=== PATIENT | female | born 2000 | race Caucasian/White ===

== ENCOUNTER 2025-02-13 21:20 | Emergency (ER) | payer MEDICAID, SELFPAY ==
--- OUTSIDE RECORDS SUMMARY | 2025-01-11 08:00 | XMS_ITS | Encounter Summary ---
Author Organization [facility] Address [address] [place] [address] Care Team Providers Care Dewer Name Role Phone Ksenia Smith MD Primary Care Provider [phone] Reason for Referral * Imaging (Routine) - Closed Specialty Diagnoses / Procedures Referred By Contac t Referred To Contact Diagnoses 12 weeks gestation of Procedures OB US 14+ Weeks Anatomy Scan Uche Messer MD [address] [place] [address] Phone: tel: fax: Referral ID Status Reason Start Date Expiration Date Visits Re quested Visits Authorized [id number] Closed 11/16/2024 05/18/2026 1 1 Reason for Visit * Imaging (Routine) - Closed Specialty Diagnoses / Procedures Referred By Megan rich Referred To Contact Diagnoses 12 weeks gestation of Procedures OB US 14+ Weeks Anatomy Scan Uche Messer MD [address] [place] [address] Phone: tel: fax: Referral ID Status Reason Start Date Expiration Date Visits Re quested Visits Authorized [id number] Closed 11/16/2024 05/18/2026 1 1 Encounter Details Date Type Department Care Team (Latest Contact Info) Description 01/11/2025 8:00 AM EDT - 01/11/2025 11:59 PM EDT Hospital Encounter [facility] [address] [place] [address] 12 weeks gestation of Discharge Disposition: Home or Self Care Social History Tobacco Use Types Packs/Day Years Used Date Smoking Tobacco: Never Smokeless Tobacco: Never Alcohol Use Standard Drinks/Week Comments Yes 0 (1 standard drink = 0.6 oz pur e alcohol) PHQ-2 Answer Date Recorded Patient Health Questionnaire-2 Score 0 01/11/2025 PHQ-9 Answer Date Recorded Patient Health Questionnaire-9 Score 0 01/11/2025 PHQ-2A Answer Date Recorded Patient Health Questionnaire-2 Score 0 07/18/2022 Estimated Date of Delivery Comme nts Yes 05/27/2025 Based on last me nstrual period of 08/20/2024 (Exact Date) Sex and Gender Information Value Date Recorded Sex Assigned at Not on file Legal Sex Female 6:45 PM EDT Gender Identity Not on file Sexual Orientation Not on file documented as of this encounter Functional Status * Over the past 2 weeks, how often have you been bothered by any of the following problems? Question Answer Date of Assessment Author Little interest or pleasure in doing things Not at all 01/11/2025 8:54 AM Tova Dukes Feeling down, depressed, or hopeless Not at all 01/11/2025 8:54 AM EDT Tova Trejo Patient Health Questionnaire -2 Score 0 01/11/2025 8:54 AM Tova Dukes * Question Answer Date of Assessment Author Trouble falling or staying a sleep, or sleeping too much Not at all 01/11/2025 8:54 AM Tova Dukes Feeling tired or having pinky le energy Not at all 01/11/2025 8:54 AM Tova Dukes Poor appetite or overeating Not at all 01/11/2025 8: 54 AM Tova Dukes Feeling bad about yourself - or that you are a failure or have let yourself or your family down Not at all 01/11/2025 8:54 AM Tova Dukes Trouble concentrating on thi ngs, such as reading the newspaper or watching television Not at all 01/11/2025 8:54 AM EDT Tova Trejo Moving or speaking so slowly that other people could have noticed? Or the opposite - being so fidgety or restless that you have been moving around a lot more than usual. Not at all 01/11/2025 8:54 AM Tova Dukes Thoughts that you would be b veda off or hurting yourself in some way Not at all 01/11/2025 8:54 AM Tova Dukes Patient Health Questionnaire -9 Score 0 01/11/2025 8:54 AM oTva Dukes * How difficult have these problems made it for you to do your work, take care of things at home, or get along with other people? Answer Date of Assessment Author Not difficult at all 01/11/2025 8:54 AM EDT Tova Damon documented as of this encounter Medications at Time of Discharge progesterone (Prometrium) 200 MG capsule Take 1 capsule by mouth nightly. 30 capsule 5 10/19/2024 04/17/2025 MV-Min-Fe Fum-FA-DHA ( 1 PO) Take by mouth. 02/08/2025 documented as of this encounter Plan of Treatment Upcoming Encounters Date Type Department Care Team (Late st Contact Info) Description 03/08/2025 9:30 AM EDT Routine Obstetrics & Gynecology [address] [place] [address] Uche Messer MD [address] [place] [address] documented as of this encounter Goals Goal Patient Goal Type Associated Problems Recent Progress Patient-Stated? Author Delayed Care Plan CPM S24 PP LABOR (OBSTETRICS) No Open Scheduling, Background documented as of this encounter Procedures Procedure Name Priority Date/Time Associated Diagnosis Comments OB US 14+ WEEKS ANATOMY SCAN Routine 01/11/2025 8:55 AM EDT 12 weeks gestation of documented in this encounter Results * OB US 14+ Weeks Anatomy Scan (01/11/2025 8:55 AM EDT) Anatomical Region Laterality Modality Body Ultrasound 01/11/2025 8:14 AM EDT Impressions 01/11/2025 10:06 AM EDT The OB Ultrasound you requested has been resulted. Please navigate to the Imaging tab in [employer] for review. This message has been generated by the interface. Narrative Procedure Note Trixie Johnson MD - 01/11/2025 IMPRESSION: The OB Ultrasound you requested has been resulted. Please navigate to theImaging tab in [employer] for review. This message has been generated by theinterface. us Uche Messer MD IMG OB US PROCEDURES Final Resu lt documented in this encounter Visit Diagnoses Diagnosis 12 weeks gestation of documented in this encounter Additional Health Concerns Active Problems Noted Date Diagnosed Date CPM S24 PP LABOR (OBSTETRICS) 12/17/2024 Assessment Noted Time PHQ-9 Depression Total Score: 0 01/12/20 8:54 AM EDT A fall risk assessment has been complete d for the patient 01/11/2025 8:54 AM EDT A Body Mass Index follow-up plan has been documented for the patient 01/11/2025 9:06 AM EDT documented as of this encounter Care Teams Dewer Relationship Specialty Start Date End Date Ksenia Smith MD [address] [place] [address] PCP - General 09/30/20 documented as of this encounter
--- OUTSIDE RECORDS SUMMARY | 2025-01-11 08:00 | XMS_ITS | Encounter Summary ---
Author Organization [facility] Address [address] [place] [address] Care Team Providers Care Log Operations Coordinator Name Role Phone Ksenia Smith MD Primary Care Provider [phone] Reason for Visit * Reason Comments Ultrasound Encounter Details Date Type Department Care Team (Late st Contact Info) Description 01/11/2025 8:00 AM EDT Routine Obstetrics & Gynecology [address] [place] [address] Uche Messer MD [address] [place] [address] 20 weeks gestation of (Primary Dx) Social History Tobacco Use Types Packs/Day Years [...] on file documented as of this encounter Last Filed Vital Signs Vital Sign Reading Time Taken Comments Blood Pressure 122/79 01/11/2025 8:53 AM EDT Pulse 74 01/11/2025 8:53 AM EDT Temperature 36.8 C (98.2 F) 01/11/2025 8:53 AM EDT Respiratory Rate - - Oxygen Saturation 99% 01/11/2025 8:53 AM EDT Inhaled Oxygen Concentration - - Weight 77 kg (169 lb 12.1 oz) 01/11/2025 8:53 AM EDT Height - - Body Mass Index 27.4 11/16/2024 10:51 AM EDT documented in this encounter Functional Status * Over the past 2 weeks, how often have you been bothered by any of the following problems? Question Answer Date of Assessment Author Little interest or pleasure in doing things Not at all 01/11/2025 8:54 AM Tova Dukes Feeling down, depressed, or hopeless Not at all 01/11/2025 8:54 AM Tova Dukes Patient Health Questionnaire -2 Score 0 01/11/2025 [...] television Not at all 01/11/2025 8:54 AM Tova Dukes Moving or speaking so slowly that other people could have noticed? Or the opposite - being so fidgety or restless that you have been moving around a lot more than usual. Not at all 01/11/2025 8:54 AM Tova Dukes Thoughts that you would be b vead off or hurting yourself in some way Not at all 01/11/2025 8:54 AM Tova Dukes Patient Health Questionnaire -9 Score 0 01/11/2025 8:54 AM Tova Dukes * How difficult have these problems made it for you to do your work, take care of things at home, or get along with other people? Answer Date of Assessment Author Not difficult at all 01/11/2025 8:54 AM Tova Ferraro documented as of this encounter Miscellaneous Notes * Progress Notes - Uche Messer MD - 01/11/2025 8:00 AM EDT Subjective Chief Complaint Patient presents with Ultrasound Yana Smith is a 24 y.o. at 20w4d with a working estimated date of delivery of 05/27/2025,by Last Menstrual Period who presents for a routine visit. She denies vaginal bleeding, leakage of fluid, decreased movements, or contractions. Her is complicated by: NA The following portions of the chart were reviewed this encounter and updated as appropriate: Meds Objective Physical Exam Weight: 77 kg (169 lb 12.1 oz) Expected Total Weight Gain: Could not be calculated Pregravid BMI: Could not be calculated BP: 122/79 Heart Rate: +us Labs Urine dip: NA HGB (g/dL) Date/Time Value 10/19/2024 1504 14.0 HCT (%) Date/Time Value 10/19/2024 1504 42.9 ABO/Rh (no units) Date/Time Value 10/19/2024 1504 A Positive Hepatitis B Surf Antigen (no units) Date/Time Value 10/19/2024 1504 Negative No results found for: PAPPA , AFP , HCG , ESTRIOL , INHBA No results found for: GLUF , GLUT1 , [id number] , [id number] Imaging Anatomy US OK - Breech Assessment/Plan Assessment & Plan 20 weeks gestation of Orders: OB US 14+ Weeks Anatomy Scan; Future Continue vitamin. Labs reviewed. GTT + others at 28+ weeks. Tdap at 28+ weeks. Re-Anatomy US 4 weeks. Follow up in 4 weeks for a routine visit. documented in this encounter Plan of Treatment Upcoming Encounters Date Type Department Care Team (Late st Contact Info) Description 03/08/2025 9:30 AM EDT Routine [facility] [address] [place] [address] Uche Messer MD [address] [place] [address] documented as of this encounter Goals Goal Patient Goal Type Associated Problems Recent Progress Patient-Stated? Author Delayed Care Plan CPM S24 PP LABOR (OBSTETRICS) No Open Scheduling, Background documented as of this encounter Visit Diagnoses Diagnosis 20 weeks gestation of - Primary documented in this encounter Additional Health Concerns [...] documented as of this encounter Care Teams Log Operations Coordinator Relationship Specialty Start Date End Date Ksenia Smith MD [address] [place] [address] PCP - General 09/30/20 documented as of this encounter
--- OUTSIDE RECORDS SUMMARY | 2025-02-08 08:30 | XMS_ITS | Encounter Summary ---
Author Organization [facility] Address [address] [place] [address] Care Team Providers Care Cat Cracker Operator Name Role Phone Ksenia Smith MD Primary Care Provider [phone] Reason for Visit * Reason Comments Routine Visit Pt doing good, de clined flu vaccine Encounter Details Date Type Department Care Team (Late st Contact Info) Description 02/08/2025 8:30 AM EDT Routine Obstetrics & Gynecology [address] [place] [address] Uche Messer MD [address] [place] [address] 24 weeks gestation of (Primary Dx) Social History Tobacco Use Types Packs/Day Years Used Date Smoking Tobacco: Never Smokeless Tobacco: Never Tobacco Cessation:Counseling Given: Not Answered Alcohol Use Standard Drinks/Week Comments Yes 0 (1 standard drink = 0.6 oz pur e alcohol) PHQ-2 Answer Date Recorded Patient Health Questionnaire-2 Score 0 02/08/2025 PHQ-9 Answer Date Recorded Patient Health Questionnaire-9 [...] Sign Reading Time Taken Comments Blood Pressure 116/80 02/08/2025 9:07 AM EDT Pulse 88 02/08/2025 9:07 AM EDT Temperature - - Respiratory Rate 20 02/08/2025 9:07 AM EDT Oxygen Saturation 100% 02/08/2025 9:07 AM EDT Inhaled Oxygen Concentration - - Weight 79.8 kg (175 lb 14.8 oz) 02/08/2025 9:07 AM EDT Height 167.6 cm (5' 6 ) 02/08/2025 9:07 AM EDT Body Mass Index 28.4 02/08/2025 9:07 AM EDT documented in this encounter Functional Status * Over the past 2 weeks, how often have you been bothered by any of the following problems? Question Answer Date of Assessment Author Little interest or pleasure in doing things Not at all 02/08/2025 9:08 AM EDT Maryjo Stein Feeling down, depressed, or hopeless Not at all 02/08/2025 9:08 AM EDT Maryjo Stein Patient Health Questionnaire -2 Score 0 02/08/2025 9:08 AM EDT Maryjo Stein documented as of this encounter Miscellaneous Notes * Progress Notes - Uche Messer MD - 02/08/2025 8:30 AM EDT Subjective Chief Complaint Patient presents with Routine Visit Pt doing good, declined flu vaccine Yana Smith is a 24 y.o. at 24w4d with a working estimated date of delivery of 05/27/2025,by Last Menstrual Period who presents for a routine visit. She denies vaginal bleeding, leakage of fluid, decreased movements, or contractions. Her is complicated by: NA The following portions of the chart were reviewed this encounter and updated as appropriate: Meds Objective Physical Exam Weight: 79.8 kg (175 lb 14.8 oz) Expected Total Weight Gain: Could not be calculated Pregravid BMI: Could not be calculated BP: 116/80 Heart Rate: +us Labs Urine dip: NA HGB (g/dL) Date/Time Value 10/19/2024 1504 14.0 HCT (%) Date/Time Value 10/19/2024 1504 42.9 ABO/Rh (no units) Date/Time Value 10/19/2024 1504 A Positive Hepatitis B Surf Antigen (no units) Date/Time Value 10/19/2024 1504 Negative No results found for: PAPPA , AFP , HCG , ESTRIOL , INHBA No results found for: GLUF , GLUT1 , [id number] , [id number] Imaging Re-Anatomy US OK - Breech Assessment/Plan Assessment & Plan 24 weeks gestation of Continue vitamin. Labs reviewed. GTT + others at 28+ weeks. Tdap at 28+ weeks. Declines FLU Follow up in 4 weeks for a routine visit. documented in this encounter Plan of Treatment Upcoming Encounters Date Type Department Care Team (Late st Contact Info) Description 03/08/2025 9:30 AM EDT Routine [facility] [address] [place] [address] Uche Messer MD [address] [place] [address] documented as of this encounter Goals Goal Patient Goal Type Associated Problems Recent Progress Patient-Stated? Author Delayed Care Plan CPM S24 PP LABOR (OBSTETRICS) No Open Scheduling, Background documented as of this encounter Visit Diagnoses Diagnosis 24 weeks gestation of - Primary documented in this encounter Additional Health Concerns Active Problems Noted Date Diagnosed Date CPM S24 PP LABOR (OBSTETRICS) 12/17/2024 Assessment Noted Time PHQ-9 Depression Total Score: 0 01/12/20 25 8:54 AM EDT A fall risk assessment has been complete d for the patient 02/08/2025 9:08 AM EDT A Body Mass Index follow-up plan has been documented for the patient 02/08/2025 9:27 AM EDT documented as of this encounter Care Teams Cat Cracker Operator Relationship Specialty Start Date End Date Ksenia Smith MD [facility] [place] [id number] PCP - General 09/30/20 documented as of this encounter
--- OUTSIDE RECORDS SUMMARY | 2025-02-08 08:35 | XMS_ITS | Encounter Summary ---
Author Organization [facility] Address [address] [place] [address] Care Team Providers Care Railroad Car Repair Supervisor Name Role Phone Ksenia Smith MD Primary Care Provider [phone] Reason for Visit * Imaging (Routine) - Closed Specialty Diagnoses / Procedures Referred By Megan rich Referred To Contact Diagnoses 20 weeks gestation of Procedures OB US Follow Up Transabdominal Approach OB US 14+ Weeks Anatomy Scan Uche Messer MD [address] [place] [address] Phone: tel: fax: Referral ID Status Reason Start Date Expiration Date Visits Re quested Visits Authorized [id number] Closed 01/11/2025 07/13/2026 1 1 Encounter Details Date Type Department Care Team (Latest Contact Info) Description 02/08/2025 8:35 AM EDT - 02/08/2025 11:59 PM EDT Hospital Encounter [facility] [address] [place] [address] 20 weeks gestation of Discharge Disposition: Home or [...] Maryjo Stein documented as of this encounter Medications at Time of Discharge progesterone (Prometrium) 200 MG capsule Take 1 capsule by mouth nightly. 30 capsule 5 10/19/2024 04/17/2025 documented as of this encounter Plan of Treatment Upcoming Encounters Date Type Department Care Team (Late st Contact Info) Description 03/08/2025 9:30 AM EDT Routine [facility] [address] [place] [address] Uche Messer MD [address] [place] [address] documented as of this encounter Goals Goal Patient Goal Type Associated Problems Recent Progress Patient-Stated? Author Delayed Care Plan CPM S24 PP LABOR (OBSTETRICS) No Open Scheduling, Background documented as of this encounter Procedures Procedure Name Priority Date/Time Associated Diagnosis Comments OB US FOLLOW UP TRANSABDOMINAL APPROACH Routine 02/08/2025 9:05 AM EDT 20 weeks gestation of documented in this encounter Results * OB US Follow Up Transabdominal Approach (02/08/2025 9:05 AM EDT) Anatomical Region Laterality Modality Body Ultrasound 02/08/2025 8:36 AM EDT Impressions 02/08/2025 9:41 AM EDT The OB Ultrasound you requested has been resulted. Please navigate to the Imaging tab in [employer] for review. This message has been generated by the interface. Narrative Procedure Note Gracy Rodriguez MD - 02/08/2025 IMPRESSION: The OB Ultrasound you requested has been resulted. Please navigate to theImaging tab in [employer] for review. This message has been generated by [employer]. us Uche Messer MD IMG OB US PROCEDURES Final Resu lt documented in this encounter Visit Diagnoses Diagnosis 20 weeks gestation of documented in this encounter [...] documented as of this encounter Care Teams Railroad Car Repair Supervisor Relationship Specialty Start Date End Date Ksenia Smith MD [address] [place] [address] PCP - General 09/30/20 documented as of this encounter
--- NOTE | 2025-02-13 21:25 | HMH.EDGENADL ---
Discharge Plan Disposition Patient Disposition: Left Against Medical Advice Condition: Good Referrals Follow up/Referrals: Provider,Referral, [Primary Care Provider, Medical] - See instructions Activity Restrictions/Add. Instructions Additional Instructions/Restrictions: Return to the emergency department for any acute or worsening symptoms. Clinical Impressions Clinical Impression: Chest pain Print Language Print Language: [place] Islander Discharge ED Provider: Lindsay Kahn General Adult HPI General Chief complaint: Chest Pain Stated complaint: chest pain; 25 wks AP Time Seen by Provider: 02/13/25 21:25 History of Present Illness HPI narrative: Patient is an otherwise healthy 24-year-old female who is currently 25 weeks who presented to the emergency department with chest pain. Patient called OB and they recommended that she be evaluated in the emergency department. 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 Patient states she has had an uncomplicated at this time. Patient has no abdominal pain abdominal cramping or vaginal bleeding. States a couple hours prior to arrival around 8 PM she started to have chest pain that radiated to her left shoulder. Patient states that it lasted for about an hour and then completely resolved. Patient did not take any medications at home for this. Patient denied any other shortness of breath or associated symptoms. Patient states that when she had the pain it was sharp in nature. Patient states that she has had some GERD during her . Patient denies any neurologic symptoms including headache, vision changes or other neurologic symptoms. Patient does not take any other daily medications. Related Data Allergies Allergy/AdvReac Type Severity Reaction Status Date / Time amoxicillin (From Augmentin) AdvReac Other Verified 02/13/25 21:46 clavulanic acid (From AdvReac Other Verified 02/13/25 21:46 Augmentin) [facility] Disclaimer: The information contained in this section may have been updated after the patient was seen, as this information can be updated by other users. Social History Smoking Status: Current every day smoker alcohol intake: never current occupational status: other Travel in the last 8 weeks?: None ROS Obtained: Yes All systems reviewed & no additional complaints except as documented and Yes Systems reviewed as appropriate & no additional complaints except as documented Physical Exam General General appearance: alert and in no apparent distress Head Head exam: atraumatic, normocephalic and normal inspection Eye Eye exam: Present normal appearance, PERRL and EOMI; Absent scleral icterus ENT ENT exam: Present normal exam and normal external ear exam Neck Neck exam: Present normal inspection and full ROM Chest Chest inspection: Present normal inspection and symmetric chest wall rise Respiratory Respiratory exam: Present normal lung sounds bilaterally; Absent respiratory distress or wheezes Cardiovascular Cardiovascular exam: Present regular rate, normal rhythm and normal heart sounds Abdominal Exam Abdominal exam: Present soft and distention; Absent tenderness, guarding or rebound Extremities Exam Extremities exam: Present normal inspection and full ROM Back Exam Back exam: Present normal inspection and full ROM Neurological Exam Neurological exam: Present alert and oriented X3 Psychiatric Psychiatric exam: Present normal affect and normal mood Skin Skin exam: Present warm and dry Medical Decision Making Medical Records Medical records reviewed: Yes I reviewed the patient's medical records. Screening: Per USPSTF and CDC recommendations, given the prevalence of disease in our region, it is our hospital?s policy to screen for HIV and viral Hepatitis for all patients aged 18 and over and those with ongoing risk factors. Willy Inquiry Pt receiving controlled substance: No Vital Signs: 02/13/25 21:41 02/13/25 21:48 02/13/25 22:31 Temperature 98.2 F Temperature Source Oral Pulse Rate 105 H 90 Pulse Rate [Right] 105 H Respiratory Rate 16 16 Blood Pressure 102/78 L Blood Pressure [Right Arm] 136/83 Blood Pressure Mean [Right Arm] 100 Blood Pressure Source [Right Arm] Automatic Cuff Blood Pressure Position [Right Arm] Sitting 02 Sat by Pulse Oximetry 100 99 Oxygen Delivery Method Room Air 02/13/25 23:00 02/13/25 23:30 Temperature 98.6 F Temperature Source Pulse Rate 93 H 53 L Pulse Rate [Right] Respiratory Rate 24 16 Blood Pressure 117/76 114/73 Blood Pressure [Right Arm] Blood Pressure Mean [Right Arm] Blood Pressure Source [Right Arm] Blood Pressure Position [Right Arm] 02 Sat by Pulse Oximetry 99 Oxygen Delivery Method Room Air Lab Data Lab results reviewed: Yes I reviewed the patient's lab results. Lab Results 02/13/25 21:25: Sodium 136, Potassium 3.1 L, Chloride 103, Carbon Dioxide 26, Anion Gap 10.1, BUN 4 L, Creatinine 0.60, Estimated Creat Clear 179, Estimated GFR 125, Est GFR ( Amer) 151, Glucose 89, Calcium 8.9, Total Bilirubin 0.4, AST 19, ALT 19, Alkaline Phosphatase 69, Troponin I < 0.01, Total Protein 6.2 L, Albumin 3.6, Globulin 2.6, Albumin/Globulin Ratio 1.4, Lipase 46, HCV Ab ETHAN w/Rflx PCR Qn Negative, HIV Ag/Ab Combo Qual Negative 02/13/25 21:25 Orders (Tests/Meds): ED MEDICATIONS Discontinued Medications Generic Name Dose Route Start Last Admin Trade Name Freq PRN Reason Stop Dose Admin Sodium Chloride 1,000 mls @ 999 mls/hr 02/13/25 21:59 02/13/25 22:35 Sod Chlor 0.9% 1000ml Bag IV 02/13/25 22:59 Not Given .Q1H1M ONE ORDERS Category Date Time Status CMP [Comprehensive Metabolic Panel] Stat Lab 02/13/25 21:25 Completed HIV Combo Stat Lab 02/13/25 21: Completed Hepatitis C Ab Qual. W/ RFX Stat Lab 02/13/25 21:25 Completed Lipase Stat Lab 02/13/25 21:25 Completed Trop I [Troponin I] Stat Lab 02/13/25 21:25 Completed Medical Decision Narrative: Patient is an otherwise healthy 24-year-old female who is currently G4, P0 25 weeks who presented to the emergency department with chest pain. On arrival, patient was hemodynamically stable with unremarkable vital signs. Differential included but not limited to:GERD, ACS/UT, arrhythmia, costochondritis, gallbladder disease, amongst others. heart rate was obtained on arrival which was normal at 142 bpm. Patient's labs were reviewed and interpreted by myself: CMP was unremarkable except for mildly low potassium at 3.1. Initial troponin less than 0.01. Lipase normal. Patient refused x-ray after I initially ordered it. After further discussion with the patient, she did not wish to wait for second troponin. I discussed that given her chest pain had only started a couple hours prior to arrival I would recommend a second troponin patient declined at this time given that her symptoms had resolved. Patient ultimately signed out AMA patient was otherwise discharged home. Return precautions were discussed. Critical Care Critical Care Time Critical Care Time: No
--- NOTE | 2025-02-13 21:27 | ECG_ITS ---
APPROVED REPORT Exam: Resting ECG HR:104 bpm ECG Measurements Heart Rate 104 AXES WY 137 P 49 QRSd 100 QRS 62 QT 328 T 15 QTc 389 Conclusion SINUS TACHYCARDIA NONSPECIFIC T-WAVE ABNORMALITY ABNORMAL RHYTHM ECG UNCONFIRMED REPORT Electronically signed by : CAITLIN DUDLEY, 02/15/2025 23:05:17
--- OUTSIDE RECORDS SUMMARY | 2025-02-13 21:35 | XMS_ITS | Encounter Summary ---
Author Organization Healthcare Address [address] [place] [address] Care Team Providers Care Supervisor Paper Testing Name Role Phone Ksenia Smith MD Primary Care Provider [phone] Encounter Details Date Type Department Care Team (Late st Contact Info) Description 11/16/2024 Telephone Obstetrics & Gynecology [address] [place] [address] Uche Messer MD [address] [place] [address] Social History Tobacco Use Types Packs/Day Years Used Date Smoking Tobacco: Never Smokeless Tobacco: Never Alcohol Use Standard Drinks/Week Comments Yes 0 (1 standard drink = 0.6 oz pur e alcohol) PHQ-2 Answer Date Recorded Patient Health Questionnaire-2 Score 0 12/14/2024 PHQ-9 Answer Date Recorded Patient Health Questionnaire-9 Score 0 12/14/2024 PHQ-2A Answer Date Recorded Patient Health Questionnaire-2 [...] pleasure in doing things Not at all 12/14/2024 9:32 AM Tova Dukes Feeling down, depressed, or hopeless Not at all 12/14/2024 9:32 AM Tova Dukes Patient Health Questionnaire -2 Score 0 12/14/2024 9:32 AM Tova Dukes * Question Answer Date of Assessment Author Trouble falling or staying a sleep, or sleeping too much Not at all 12/14/2024 9:32 AM Tova Dukes Feeling tired or having pinky le energy Not at all 12/14/2024 9:32 AM Tova Dukes Poor appetite or overeating Not at all 12/14/2024 9: 32 AM Tova Dukes Feeling bad about yourself - or that you are a failure or have let yourself or your family down Not at all 12/14/2024 9:32 AM Tova Dukes Trouble concentrating on thi ngs, such as reading the newspaper or watching television Not at all 12/14/2024 9:32 AM Tova Dukes Moving or speaking so slowly that other people could have noticed? Or the opposite - being so fidgety or restless that you have been moving around a lot more than usual. Not at all 12/14/2024 9:32 AM Tova Dukes Thoughts that you would be b veda off or hurting yourself in some way Not at all 12/14/2024 9:32 AM Tova Dukes Patient Health Questionnaire -9 Score 0 12/14/2024 9:32 AM Tova Dukes * How difficult have these problems made it for you to do your work, take care of things at home, or get along with other people? Answer Date of Assessment Author Not difficult at all 12/14/2024 9:32 AM Tova Ferraro documented as of this encounter Miscellaneous Notes * Telephone Encounter - Maryjo Stein - 11/16/2024 4:52 PM EDT Will discuss at NT ultrasound appt pt vu * Telephone Encounter - Xiomara Alonso - 11/16/2024 2:05 PM EDT Clinical Concern/Question Reason for Call: Pt has a question about her medication Best contact number: [phone] (mobile) Optimal time of day to reach caller: ANYTIME Additional comments/information from caller: None Note: Please do not reply to this message. Follow-up communication and further actions as a result of this message need to be communicated with the patient directly, if the patient is not active onMyChart. If the patient is active on MyChart, they will receive notification of the communication/outcome via [employer]. documented in this encounter Plan of Treatment Upcoming Encounters Date Type Department Care Team (Late st Contact Info) Description 03/08/2025 9:30 AM EDT Routine [facility] [address] [place] [address] Uche Messer MD [address] [place] [address] documented as of this encounter Visit Diagnoses Not on filedocumented in this encounter Additional Health Concerns Assessment Noted Time PHQ-9 Depression Total Score: 0 08/06/19 25 10:40 AM EDT A fall risk assessment has been complete d for the patient 11/16/2024 10:52 AM EDT A Body Mass Index follow-up plan has been documented for the patient 11/16/2024 11:43 AM EDT documented as of this encounter Care Teams Supervisor Paper Testing Relationship Specialty Start Date End Date Ksenia Smith MD [address] [id number] PCP - General 09/30/20 documented as of this encounter
--- OUTSIDE RECORDS SUMMARY | 2025-02-13 21:35 | XMS_ITS | Encounter Summary ---
Author Organization Healthcare Address [address] [place] [address] Care Team Providers Care Adding Machine Mechanic Name Role Phone Ksenia Smith MD Primary Care Provider [phone] Encounter Details Date Type Department Care Team (Late st Contact Info) Description 02/05/2025 Telephone Obstetrics & Gynecology [address] [place] [address] Uche Messer MD [address] [place] [address] Social History Tobacco Use Types [...] on file documented as of this encounter Miscellaneous Notes * Telephone Encounter - Gladys Perez - 02/05/2025 10:02 AM EDT Lm on to confirm appt for 02/08 documented in this encounter Plan of Treatment Upcoming Encounters Date Type Department Care Team (Late st Contact Info) Description 03/08/2025 9:30 AM EDT Routine [facility] [address] [place] [address] Uche Messer MD [address] [place] [address] documented as of this encounter Goals Goal Patient Goal Type Associated Problems Recent Progress Patient-Stated? Author Delayed Care Plan CPM S[facility] (OBSTETRICS) No Open Scheduling, Background documented as of this encounter Visit Diagnoses Not on filedocumented in this encounter Additional Health Concerns Active [...] documented as of this encounter Care Teams Adding Machine Mechanic Relationship Specialty Start Date End Date Ksenia Smith MD [facility] [place] [address] PCP - General 09/30/20 documented as of this encounter
--- OUTSIDE RECORDS SUMMARY | 2025-02-13 21:35 | XMS_ITS | Data Portability ---
Author Organization [facility] [place] [facility] Address [address] [place] [address] Assessment No assessment recorded. Plan of Treatment Reminders Order Date Submit Date Provider Last Modified By Organization Details Last Modified Time Details Appointments None recorded. Lab urinalysis , dipstick 2022 023 [email or web address] [facility], [address] [facility], [address], [place], [address], 3 14:38:29 influenza virus A + B + SARS-CoV-2 (COVID19) Ag panel, rapid IA, upper respirator y specimen 2022 023 Not available 15:19:22 rapid strep group A, throat 2022 023 [email or web address] Not available 15:19:22 Referral None recorded. Procedures None recorded. Surgeries None recorded. Imaging US, renal 2022 023 [facility] (Centralized Scheduling), [address] [facility], [place], [address], 3 14:55:28 XR, kidney + ureter + bladder 2022 023 [facility] (Centralized Scheduling), [address] [facility], [place], [address], 3 14:55:28 Medication Orders Macrodanti n 50 mg capsule 2022 023 ALYSSA [facility] [id number], [address] [place], [address], 14:37:35 prednisone 10 mg tablets in a dose pack 2022 023 [email or web address] [facility] [id number], [address] [place], [address], 14:10:12 Patient TargetsNo targets recorded. Patient InstructionsNo instructions recorded. Reason for Referral None Reported. Results Created Date Observation Date Name Description Value Unit Range Abnormal Flag Note LastModifiedBy Organization Detail LastModifiedTime 03/04/2003/04/2023 influ sarah virus A + B + SARS- CoV-2 (COVI D19) Ag panel , rapid IA, upper respi rator y speci men FLU A negati ve Not Available [facility] [address] [facility] [address] [facility], [place], [address], 03/04/2023 14:56:10 03/04/20 23 03/04/2023 influ sarah virus A + B + SARS- CoV-2 (COVI D19) Ag panel , rapid IA, upper respi rator y speci men FLU B negati ve Not Available [facility] [address] [facility] [address] [facility], [place], [address], 03/04/2023 14:56:10 03/04/20 23 03/04/2023 influ sarah virus A + B + SARS- CoV-2 (COVI D19) Ag panel , rapid IA, upper respi rator y speci men SARS COV + SARS OV 2 negati ve Not Available [facility] [address] [facility] [address] [facility], [place], [address], 03/04/2023 14:56:10 03/04/20 23 03/04/2023 rapid strep group A, throa t Strep negati ve Not Available [facility] [address] [facility] [address] [facility], [place], [address], 03/04/2023 14:52:46 04/01/2004/01/2023 urina lysis , dipst ick Leukocytes (reference range) negati ve Not Available [facility] [address] [place] [address] [address], [place], [address], 04/01/2023 14:21:12 04/01/2004/01/2023 urina lysis , dipst ick Nitrite (reference range:) negati ve Not Available [facility] [address] [place] [address] [address], [place], [address], 04/01/2023 14:21:12 04/01/2004/01/2023 urina lysis , dipst ick Urobilinogen (reference range) 0.2 Not Available [address] [address] [address], [place], [address], 04/01/2023 14:21:12 04/01/2004/01/2023 urina lysis , dipst ick Protein (reference range) negati ve Not Available [address] [address], [place], [address], 04/01/2023 14:21:12 04/01/2004/01/2023 urina lysis , dipst ick pH (reference range 5-8.5) 7.0 Not Available [facility], [place], [address], 04/01/2023 14:21:12 04/01/2004/01/2023 urina lysis , dipst ick Blood (reference range:) negati ve Not Available [address], [place], [address], 04/01/2023 14:21:12 04/01/20 23 04/01/2023 urina lysis , dipst ick Specific [place] (reference range) 1.015 Not Available [facility] [address] [place] [address] [address], [place], [address], 04/01/2023 14:21:12 04/01/20 23 04/01/2023 urina lysis , dipst ick Ketone (reference range) negati ve Not Available [facility] [address] [place] [address] [address], [place], [address], 04/01/2023 14:21:12 04/01/2004/01/2023 urina lysis , dipst ick Bilirubin (reference range) negati ve Not Available [facility] [address] [place] [address] [address], [place], [address], 04/01/2023 14:21:12 04/01/20 23 04/01/2023 urina lysis , dipst ick Glucose (reference range) negati ve Not Available [facility], [place], [address], 04/01/2023 14:21:12 04/01/2004/01/2023 urina lysis , dipst ick Color (reference range: yellow-brown ) Yellow Not Available [facility] [address] [place] [address] [address], [place], [address], 04/01/2023 14:21:12 04/08/20 23 04/08/2023 URINE PREGN MAICOL TEST urine test NEGATI VE negati ve Not Available [facility] ([facility]) [address] [facility], [place], [address], 04/08/2023 09:18:48 04/08/20 23 04/08/2023 URINE PREGN MAICOL TEST HCG urine lot # [id number] Not Available [facility] ([facility]) [address] [facility], [place], [address], 04/08/2023 09:18:48 04/08/20 23 04/08/2023 URINE PREGN MAICOL TEST HCG urine exp date 2023 Not Available [facility] ([facility]) [address], [place], [address], 04/08/2023 09:18:48 04/08/20 23 04/08/2023 URINE PREGN MAICOL TEST HCG urine int control pos OK positi ve Not Available [facility] ([facility]) [address], [place], [address], 04/08/2023 09:18:48 04/08/20 23 04/08/2023 XR, abdom en, 1 view [facility] [address] [place] [address] Phone: Fax: Name: HUI SMITH Exam Date: 2022 : [birth year] Age 22 Gender : F Access ion: [id number] Physic rolf: ALVARO BERGER Facili ty: [facility] Facili ty HSV: Outpat ient Exam: ABD KUB 1V KUB. HISTOR Y: Chroni c urinar y tract infect ions. FINDIN GS: A single view of the abdome n with a coned- down of the pelvis demons trates a nonspe cific bowel gas patter n. Mild to modera te stool in the colon limits assess ment of the renal shadow s. No defini te renal ureter al stone is identi fied. No acute osseou s abnorm ality is identi fied. IMPRES TANISHA: No defini te renal or ureter al stone identi fied. Images review ed, interp reted and dictat ed by Dr. Orozco. Transc ribed by Jeanmarie Heard PA-C Dictat ed By: BILLY OROZCO Transc ribed By: Billy Orozco Transc ribed On: 2022 11:29 AM Electr onical ly signed by: BILLY OROZCO 2022 Thank you for referr HUI [facility] to [facility]. Legall y authen ticate d by POPE BILLY Moreno 2022-05 11:29: 12 CC'ed Logic: Orderi ng Provid er: CELINE Carpenter Attend ing Provid er: CELINE Carpenter Admitt ing Provid er: CELINE Carpenter [email or web address] [facility] [address] [facility], [place], [address], 04/08/2023 12:45:11 04/08/20 23 04/08/2023 renal ,bila teral US [facility] [address] [place] [address] Phone: Fax: Name: HUI SMITH Exam Date: 2022 : [birth year] Age 22 Gender : F Access ion: [id number] Physic rolf: ALVARO BERGER Facili ty: [facility] Facili ty HSV: Outpat ient Exam: RENAL, BILATE RAL US RENAL ULTRAS OUND HISTOR Y: Recurr ent urinar y tract infect ions. PROCED URE: Ultras ound images of the kidney s were obtain ed. FINDIN GS: Limite d images of the liver parenc hyma demons trate normal echoge nicity . The right kidney measur es 11 cm in length . It is normal echoge nicity . There is no hydron ephros is. The left kidney measur es 11 cm in length . It is normal echoge nicity . There is no hydron ephros is. IMPRES TANISHA: Normal renal ultras ound. Images review ed, interp reted and dictat ed by Dr. Orozco. Transc ribed by Jeanmarie Heard PA-C Dictat ed By: BILLY OROZCO Transc ribed By: Billy Orozco Transc ribed On: 2022 11:29 AM Electr onical ly signed by: BILLY OROZCO 2022 Thank you for referr HUI [place] to [facility] it Hospit al. Legall y authen ticate d by POPE BILLY Moreno 2022-05 11:29: 49 CC'ed Logic: Orderi ng Provid er: CELINE Carpenter Attend ing Provid er: CELINE Carpenter Admitt ing Provid er: CELINE ALVARO Carpenter [email or web address] [facility] [address] [facility], [place], [address], 04/08/2023 12:45:11 Result Notes Documentation Provider Name and Address Organization Details Recorded Time Xr, Abdomen, 1 View : [facility] [address] [place] [address] Name: YANA SMITH Exam Date: 04/08/2023 : 2000 Age 22 Gender: F Physician: ALY BERGER Facility: [facility] Facility HSV: Outpatient Exam: ABD KUB 1V KUB. HISTORY: Chronic urinary tract infections. FINDINGS: A single view of the abdomen with a coned-down of the pelvis demonstrates a nonspecific bowel gas pattern. Mild to moderate stool in the colon limits assessment of the renal shadows. No definite renal ureteral stone is identified. No acute osseous abnormality is identified. IMPRESSION: No definite renal or ureteral stone identified. Images reviewed, interpreted and dictated by Dr. Orozco. Transcribed by Jeanmarie eHard PA-C Dictated By: BILLY OROZCO Transcribed By: Billy Orozco Transcribed On: 04/08/2023 11:29 AM Electronically signed by: BILLY OROZCO 04/08/2023 Thank you for referring YANA SMITH to [facility]. Legally authenticated by POPE BILLY Moreno 2023-04-08 11:29:12 CC'ed Logic: Ordering Provider: CELINE LU Attending Provider: CELINE LU Admitting Provider: CELINE Berger, MAINFRAME SYSTEMS ENGINEER, S [address] [facility], [place], [address], [facility] & [place] 04/08/2023 12:45:11 Medical Equipment None Reported. Allergies Allergen ID Allergen Name Allergen Category Reaction Reaction Severity Criticality Documentation Date Start Date Code Code System Note Provider Name and Address Organization Details Recorded Time 39837 Augmentin medicatio n hives Not available Not available 03/04/2023 43441 2 RxNorm Shannon Luevano null, [facility] [place] 3 14:39:13 Medications Name Sig Start Date Stop Date Status Note LastModified by Organization Details LastModified Time terconazole 0.4 % vaginal cream INSERT 1 APPLICATO R INTO THE VAGINA EVERY NIGHT FOR 7 DAYS. 03/04 completed Not Available Not Available Not Available nitrofurant oin macrocrysta l 50 mg capsule Take 1 capsule every day by oral route for 30 days. active Not Available Not Available No t Available clindamycin HCl 300 mg capsule 04/01 completed Not Available Not Available Not Available fluconazole 150 mg tablet TAKE 1 TABLET BY MOUTH 1 TIME FOR 1 DOSE. 04/01 completed Not Available Not Available Not Available metronidazo le 500 mg tablet TAKE 1 TABLET BY MOUTH TWICE A DAY FOR 7 DAYS 03/04 completed Not Available Not Available Not Available prednisone 10 mg tablets in a dose pack As directed 04/01 completed Not Available Not Available Not Available estradiol 0.01% (0.1 mg/gram) vaginal cream active Not Available Not Available Not Available oxybutynin chloride 5 mg tablet 03/04 completed Not Available Not Available Not Available ondansetron 4 mg disintegrat ing tablet 03/04 completed Not Available Not Available Not Available nitrofurant oin monohydrate /macrocryst als 100 mg capsule 03/04 completed Not Available Not Available Not Available Blisovi Fe 06/08 (28) 1 mg-20 mcg (21)/75 mg (7) tablet active Not Available Not Available N ot Available Vitals Date Recorded Body height Body mass index (BMI) [Percentile] Per age and sex Body mass index (BMI) Body weight Body temperature Heart rate Oxygen saturation Oxygen saturation in Arterial blood by Pulse oximetry Systolic And Diastolic Provider Name and Address Organization Details Last Updated DateTime 3 167.64 cm 44 % 21.3 kg/m2 38618.8 9 g 99.7 [degF] 98 /min 97 % 97 % 121/77 mm[Hg] Shannon Bassem LANGLEY [facility] [place] 3 14:37:48 Date Recorded Body height Body mass index (BMI) Body mass index (BMI) [Percentile] Per age and sex Body weight Body temperature Systolic And Diastolic Provider Name and Address Organization Details Last Updated DateTime 3 167.64 cm 21 kg/m2 41 % 01331.0 1 g 98 [degF] 112/72 mm[Hg] Tova Lopes [place] [facility] [place] 3 14:20:28 Social History None recorded. Functional Status Question Answer Note LastModified by Organizat ion Details LastModified Time Do you use any illicit or recreational drugs? No Information not available 04/01/2023 What is your level of alcohol consumption? Occasional Information not available 04/01/2023 Mental Status None recorded. Family History Relationship Description Onset Age of this Age Resolved Age Notes LastModified by Organization Details LastModified Time Father No current problems or disability [email or web address] Not available 04/01 14:11:52 Mother No current problems or disability [email or web address] Not available 04/01 14:11:52 Notes:Mother living no issue s Father living no issues Medical History No medical history recorded. Gynecological History Statement/Question Response Menses Monthly N Current Control Method IUD Obstetrics History GPAL:G 0 P 0 0 0 0 Past Encounters Encounter ID Performer Location Encounter Start Date Encounter Closed Date Diagnosis/Indication Diagnosis SNOMED-CT Code Diagnosis ICD10 Code Diagnosis IMO Codes Diagnosis Note [id number] Luke Castillo MD [facility] [address] [facility] [address] [place] [address] 03/04/2023 14:19:48 03/04/2023 15:18:21 Sore throat 584786935 J02.9 Nasal congestion 7577501 0 R09.81 Acute uppe r respiratory infection 85011407 J06.9 Presumed viral illness. Rest, plenty of fluids, OTC symptomati c treatment. Return for failure several days or sooner if worsening. Steroids for symptoms. [id number] Aly Berger NP, [facility] [address] [facility] [place] [address] 04/01/2023 13:36:44 04/01/2023 15:04:09 Recurrent urinary tract infection 895388277 N39.0 UA clearDiscu ssed active bowel habits, probiotics , cranberry supplement s/vitamin C Qday-tid, hygeine, voiding prior to and post sex (wash), and wipe front to back.Sched ule Renal US and KUBStart Macrodanti n 50mg dailyRTC in 8 weeks for f/u Nocturia 862510321 R35.1 Constipation 76341841 K5 9.00 Health Concerns Section Related Observation LastModified by Organization Detai ls LastModified Time None Recorded Concern Status LastModified by Organization Details LastModified Time None Recorded Advance Directives Directive None Recorded Payers Insurance Date Sequence Insurance Name Policy Number Policy Thomas Covered Member ID Thomas Member ID Guarantor Name 05/24/2023 1 [facility] (MEDICAID HMO) Yana Smith [id number] Sonia Garcia 03/04/2023 1 [place] [id number] Mahendra Smith [id number] Sonia Garcia 03/04/2023 1 [employer]) [id number] Sonia Garcia [id number] Sonia Garcia Notes Date Note Type Note Provider Name and Address Organization Details Recorded Time 3 text/html Upper Respiratory SymptomsReported by PatientUpper Respiratory SymptomsFor quality, patient reportscongestedanddry cough. For associated symptoms, patient reportsfatigue,sore throat,diarrhea,nausea, andmalaisebut reportsno fever. For location, patient reportshead,throat, andnasal. For severity, patient reportsmoderate. For onset/timing, patient reportsgradual.ROS as noted in the HPI Luke Castillo MD [address] [facility], [place], [address], [facility] [place] & [place] 03/04/2023 15:21:18 3 text/html 22 yowf presents to the office for evaluation of reoccurring UTIs. Location is LUT. Quality is pressure and painful urination. Severity- varies. Reports that she started experiencing reoccurring UTI's approx 6 years ago, has had 6 UTIs this year, last UTI was approx 2 weeks ago. UTIs have all been treated with antibiotics, sxs typically improve after 2-3 days being on antibiotic ttx. When experiences UTI has dysuria and urinary urgency/frequency. Has not had any labs or diagnostic tests performed. 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 No h/o DM or kidney stones. Reports drinking caffeine makes LUT sxs worse. Reports UTIs are occasionally related to sexual intercourse. Chlamydia and gonorrhea was negative on 02/28/2023. Aly Berger NP, S [address] [facility], [place], [address], [facility] [place] & [place] 04/01/2023 14:38:16 OBGyn Episode No OBEpisode recorded.
--- OUTSIDE RECORDS SUMMARY | 2025-02-13 21:35 | XMS_ITS | Encounter Summary ---
Author Organization Healthcare Address [address] [place] [address] Care Team Providers Care Yarn Conditioner Name Role Phone Ksenia Smith MD Primary Care Provider [phone] Encounter Details Date Type Department Care Team (Latest Contact Info) Description 01/11/2025 Travel Social History Tobacco Use Types Packs/Day Years [...] things Not at all 01/11/2025 8:54 AM EDT Tova Trejo Feeling down, depressed, or hopeless Not at [...] Not difficult at all 01/11/2025 8:54 AM EDTova Corado documented as of this encounter Plan of Treatment Upcoming Encounters Date Type Department Care Team (Late st Contact Info) Description 03/08/2025 9:30 AM EDT Routine [facility] [address] [place] [address] Uche Messer MD [address] [place] [address] documented as of this encounter [...] documented as of this encounter Care Teams Yarn Conditioner Relationship Specialty Start Date End Date Ksenia Smith MD [address] [place] [address] PCP - General 09/30/20 documented as of this encounter
--- OUTSIDE RECORDS SUMMARY | 2025-02-13 21:35 | XMS_ITS | Encounter Summary ---
Author Organization [facility] Address [address] [place] [address] Care Team Providers Care Machine Hoop Maker Helper Name Role Phone Ksenia Smith MD Primary Care Provider [phone] Reason for Visit * Reason Onset Date Comments Med Refill 2024 Encounter Details Date Type Department Care Team (Late st Contact Info) Description 2024 Refill Obstetrics & Gynecology [address] [place] [address] [place] [address] Acute vaginitis (Primary Dx) Social History Tobacco Use Types [...] on file documented as of this encounter Plan of Treatment Upcoming Encounters Date Type Department Care Team (Late st Contact Info) Description 03/08/2025 9:30 AM EDT Routine [facility] [address] [place] [address] Uche Messer MD [address] [place] [address] documented as of this encounter Goals Goal Patient Goal Type Associated Problems Recent Progress Patient-Stated? Author Delayed Care Plan CPM S24 PP LABOR (OBSTETRICS) No Open Scheduling, Background documented as of this encounter Visit Diagnoses Diagnosis Acute vaginitis- Primary Unspecified vaginitis and vulvovaginitis documented in this encounter Additional Health Concerns Active Problems Noted Date Diagnosed Date CPM S24 PP LABOR (OBSTETRICS) 12/17/2024 Assessment Noted Time PHQ-9 Depression Total Score: 0 12/15/19 25 9:32 AM EDT A fall risk assessment has been complete d for the patient 12/14/2024 9:32 AM EDT A Body Mass Index follow-up plan has been documented for the patient 12/14/2024 9:49 AM EDT documented as of this encounter Care Teams Machine Hoop Maker Helper Relationship Specialty Start Date End Date Ksenia Smith MD [address] [place] [address] PCP - General 09/30/20 documented as of this encounter
--- OUTSIDE RECORDS SUMMARY | 2025-02-13 21:35 | XMS_ITS | Clinical Summary ---
Author Organization [facility] Address [address] [place] [address] Care Team Providers Care Fire Equipment Operator Name Role Phone None, Physician Primary Care Provider Unavailabl e Allergies No known active allergies Medications methocarbamol (ROBAXIN) 750 MG tablet Take 1 tablet by mouth 3 (three) times daily as needed (Back pain). 30 tablet 5 Active lidocaine (LIDODERM) 5 % Place 1 patch onto the skin daily Remove & Discard patch within 12 hours or as directed by MD. 14 patch 5 Active ibuprofen (MOTRIN) 600 MG tablet Take 1 tablet by mouth every 8 (eight) hours as needed for Pain. 30 tablet 5 Active bacitracin ointment Apply topically 2 (two) times daily to affected area(s).. 425 g 5 Active Immunizations Immunization Administration Dates Next Due Tdap 08/31/2024 Social History Tobacco Use Types Packs/Day Years Used Date Smoking Tobacco: Never Assessed Comments Unknown Sex and Gender Information Value Date Recorded Sex Assigned at Not on file Legal Sex Female 6:20 PM EDT Gender Identity Not on file Sexual Orientation Not on file Last Filed Vital Signs Vital Sign Reading Time Taken Comments Blood Pressure 140/91 08/31/2024 7:00 PM EDT Pulse 85 08/31/2024 6:36 PM EDT Temperature 36.7 C (98.1 F) 08/31/2024 6:20 PM EDT Respiratory Rate 16 08/31/2024 6:36 PM EDT Oxygen Saturation 96% 08/31/2024 7:00 PM EDT Inhaled Oxygen Concentration - - Weight - - Height 167.6 cm (5' 6 ) 08/31/2024 6:20 PM EDT Body Mass Index - - Plan of Treatment Health Maintenance Due Date Last Done Comments Hepatitis B (HepB) Vaccine ( 2 of 3 - 3-dose series) 01/23/2003 2002 HPV Vaccine (2 - 2-dose series) 02/09/2017 08/09/2016 Cervical Cancer Screening 12/24/2023 Annual SDOH Screening 05/20/2024 Depression Screening 05/20/2024 Influenza Vaccine (#1) 2025 02/08/2014 Tdap/Td Vaccine >11 yo (3 - Td or Tdap) 08/31/2034 08/31/2024, 02/08/2014 Hepatitis A (HepA) Vaccine Completed 06/28, 12/25/2005 Meningococcal ACWY Completed 12/25/2018, 02/08/2014 Haemophilus Influenzae Type B (Hib) Vaccine Aged Out No longer eligible b ased on patient's age to complete this topic Pneumococcal Vaccines 6-49 y o Risk Aged Out No longer eligible b ased on patient's age to complete this topic Polio (IPV) Aged Out No longer eligi ble based on patient's age to complete this topic Rotavirus (RV) Vaccine Aged Out No lo nger eligible based on patient's age to complete [place] [address] [employer] Care Teams Fire Equipment Operator Relationship Specialty Start Date End Date None, Physician PCP - General 08/31/24
--- OUTSIDE RECORDS SUMMARY | 2025-02-13 21:36 | XMS_ITS | Encounter Summary ---
Author Organization Healthcare Address [address] [place] [address] Care Team Providers Care Damage Appraiser Name Role Phone Ksenia Smith MD Primary Care Provider [phone] Encounter Details Date Type Department Care Team (Latest Contact Info) Description 02/08/2025 Travel Social History Tobacco Use Types Packs/Day [...] Maryjo Stein documented as of this encounter Plan of Treatment Upcoming Encounters Date Type Department Care Team (Late st Contact Info) Description 03/08/2025 9:30 AM EDT Routine [facility] [address] [place] [address] Uche Messer MD [address] [place] [address] documented as of this encounter [...] documented as of this encounter Care Teams Damage Appraiser Relationship Specialty Start Date End Date Ksenia Smith MD [address] [place] [address] PCP - General 09/30/20 documented as of this encounter
--- OUTSIDE RECORDS SUMMARY | 2025-02-13 21:36 | XMS_ITS | Clinical Summary ---
Author Organization [facility] Address [address] [place] [address] Care Team Providers Care Assistant Foreman Name Role Phone Ksenia Smith MD Primary Care Provider [phone] Allergies Active Allergy Reactions Criticality Noted Date Comments Amoxicillin-Pot Clavulanate Hives,Swelling High 11/2017 Other Unknown - Patient st ates they do not know rxn details Low 12/09/2018 Seasonal Medications progesterone (Prometrium) 200 MG capsule Take 1 capsule by mouth nightly. 30 capsule 5 5 04/17/20 25 Active MV-Min-Fe Fum-FA-DHA ( 1 PO) Take by mouth. 02/09/20 25 Discontinued Active Problems Estimated Date of Delivery Comme nts Yes 05/27/2025 Based on last me nstrual period of 08/20/2024 (Exact Date) No known active problems Encounters Date Type Department Care Team Description 02/08/2025 8:35 AM EDT - 02/08/2025 11:59 PM EDT Hospital Encounter [facility] Miriam GALLEGOS Ultrasound [address] [place] [address] 20 weeks gestation of Discharge Disposition: Home or Self Care 02/08/2025 8:30 AM EDT Routine Obstetrics & Gynecology [address] [place] [address] Uche Messer MD 24 weeks gestation of (Primary Dx) 02/08/2025 Travel 02/05/2025 Telephone Obstetrics & Gynecology [address] [place] [address] Uche Messer MD 01/11/2025 8:00 AM EDT Routine Obstetrics & Gynecology [address] [place] [address] Uche Messer MD 20 weeks gestation of (Primary Dx) 01/11/2025 8:00 AM EDT - 01/11/2025 11:59 PM EDT Hospital Encounter [facility] [address] [place] [address] 12 weeks gestation of Discharge Disposition: Home or Self Care 01/11/2025 Travel 2024 Refill Obstetrics & Gynecology [address] [place] [address] Tova Trejo Acute vaginitis (Primary Dx) 12/14/2024 9:30 AM EDT Routine Obstetrics & Gynecology [address] [place] [address] Uche Messer MD 16 weeks gestation of (Primary Dx) 12/14/2024 Travel 12/10/2024 Travel 11/16/2024 11:45 AM EDT Clinical Support Obstetrics & Gynecology [address] [place] [address] Encounter for supervision of other normal , first trimester 11/16/2024 10:32 AM EDT - 11/16/2024 11:59 PM EDT Hospital Encounter [facility] [place] [facility] [address] [place] [address] 8 weeks gestation of Discharge Disposition: Home or Self Care 11/16/2024 10:30 AM EDT Routine Obstetrics & Gynecology [address] [place] [address] Uche Messer MD 12 weeks gestation of (Primary Dx) 11/16/2024 Telephone Obstetrics & Gynecology [address] [place] [address] Uche Messer MD 11/16/2024 Travel 11/14/2024 Travel 11/13/2024 Telephone Obstetrics & Gynecology [address] [place] [address] Uche Messer MD from Last 3 Months Social History Tobacco Use Types Packs/Day Years [...] Pulse 88 02/08/2025 9:07 AM EDT Temperature 36.8 C (98.2 F) 01/11/2025 8:53 AM EDT Respiratory Rate 20 02/08/2025 9:07 AM EDT Oxygen Saturation 100% 02/08/2025 9:07 AM EDT Inhaled Oxygen Concentration - - Weight 79.8 kg (175 lb 14.8 oz) 02/08/2025 9:07 AM EDT Height 167.6 cm (5' 6 ) 02/08/2025 9:07 AM EDT Body Mass Index 28.4 02/08/2025 9:07 AM EDT Plan of Treatment Upcoming Encounters Date Type Department Care Team (Late st Contact Info) Description 03/08/2025 9:30 AM EDT Routine Obstetrics & Gynecology [address] [place] [address] Uche Messer MD [address] [place] [address] Health Maintenance Due Date Last Done Comments [facility]-/Child/Adol SDOH Screenings 2002 [facility]-Hepatitis B Vaccines (2 of 3 - 3-dose series) 01/23/2003 2002 [facility]-Varicella Vaccines (2 of 2 - 2-dose childhood series) 04/22/2008 01/29/2008 HPV Vaccines (2 - 2-dose series) 02/09/2017 08/09/2016 [facility]- SDOH Screenings 2020 [facility]-Adult SDOH Screenings 2020 [facility]-Pap Smear 12/24/2023 [id number] Vaccine (2 - season) 2025 04/28/2021 [facility]-Influenza Vaccine (#1) 2025 02/08/2014 [facility]-RSV Vaccine: 60+ Years or (1 - Risk 1-dose series) 04/01/2025 [facility]-Chlamydia and Gonorrhea Screening 10/19/2025 10/19/2024, 10/19/2024, 09/22/2024, Additional history exists [facility]-Depression Screening 02/08/2026 02/08/2025, 12/19 [facility]-DTaP,Tdap,and Td Vaccines (3 - Td or Tdap) 08/31/2034 08/31/2024, 02/08/2014 [facility]-Zoster Vaccines (1 of 2) 2052 01/29/2008 [facility]-Hepatitis A Vaccines Completed 06/28/2006, 12/2005 [facility]-HIV Screening Completed 10/19/2024, 08/10/2022 [facility]-Hepatitis C Screening Completed 10/19/2024, [facility]-Obesity Intervention Completed 025, 01/11/2025, 12/14/2024, Additional history exists [facility]-HIB Vaccines Aged Out No longer e ligible based on patient's age to complete this topic [facility]-IPV Vaccines Aged Out No longer e ligible based on patient's age to complete this topic [facility]-Pneumococcal Vaccine: Pediatrics (0 to 5 Years) and At-Risk Patients (6 to 49 Years) Aged Out No longer eligible based on patient's age to complete this topic [facility]-Rotavirus Vaccines Aged Out No lo nger eligible based on patient's age to complete this topic Goals Goal Patient Goal Type Associated Problems Recent Progress Patient-Stated? Author Delayed Care Plan CPM S24 PP LABOR (OBSTETRICS) No Open Scheduling, Background Procedures Procedure Name Priority Date/Time Associated Diagnosis Comments OB US FOLLOW UP TRANSABDOMINAL APPROACH Routine 02/08/2025 9:05 AM EDT 20 weeks gestation of OB US 14+ WEEKS ANATOMY SCAN Routine 01/11/2025 8:55 AM EDT 12 weeks gestation of HORIZON 14 (GENAO-ETHNIC STANDARD) Routine 11/16/2024 11:21 AM EDT Encounter for supervision of other normal , first trimester PANORAMA TEST Routine 11:21 AM EDT Encounter for supervision of other normal , first trimester OB US NUCHAL TRANSLUCENCY Routine 11/16/2024 10:51 AM EDT 8 weeks gestation of HEPATITIS C ANTIBODY W/REFLEX TO HCV QUANT PCR Routine 10/19/2024 3:04 PM EDT Unsure of LMP (last menstrual period) as reason for ultrasound scan HIV 1/2 ANTIBODY/ANTIGEN SCREEN WITH REFLEX TO HIV I/II DIFFERENTIATION Routine 10/19/2024 3:04 PM EDT Unsure of LMP (last menstrual period) as reason for ultrasound scan CHLAMYDIA TRACHOMATIS DNA BY PCR Routine 10/19/2024 3:04 PM EDT Unsure of LMP (last menstrual period) as reason for ultrasound scan from Last 3 Months or Most Recently Relevant to Health Maintenance Results * OB US Follow Up Transabdominal Approach (02/08/2025 9:05 AM EDT) Anatomical Region Laterality Modality Body Ultrasound 02/08/2025 8:36 AM EDT Impressions 02/08/2025 9:41 AM EDT The OB Ultrasound you requested has been resulted. Please navigate to the Imaging tab in Epic for review. This message has been generated by the interface. Narrative Procedure Note Gracy Rodriguez MD - 02/08/2025 IMPRESSION: The OB Ultrasound you requested has been resulted. Please navigate to theImaging tab in [employer] for review. This message has been generated by [employer] network. Result João Messer MD IM OB US PROCEDURES Final Resu lt * OB US 14+ Weeks Anatomy Scan (01/11/2025 8:55 AM EDT) Anatomical Region Laterality Modality Body Ultrasound 01/11/2025 8:14 AM EDT Impressions 01/11/2025 10:06 AM EDT The OB Ultrasound you requested has been resulted. Please navigate to the Imaging tab in [employer] for review. This message has been generated by the interface. Narrative Procedure Note Trixie Johnson MD - 01/11/2025 IMPRESSION: The OB Ultrasound you requested has been resulted. Please navigate to theImaging tab in [employer] for review. This message has been generated by [employer]. Result João Messer MD IMG OB US PROCEDURES Final Resu lt * Horizon 14 (Genao-Ethnic Standard) (11/16/2024 11:21 AM EDT) REPORT SUMMARY Negative 11/23/2024 2:42 PM EDT [facility] Comment:Negative for 14 out of 14 diseases. ALPHA-THALASSEMIA Negative 025 2:42 PM EDT [facility] BETA-HEMOGLOBINOP ATHIES Negative 11/23/2024 2:42 PM EDT [facility] BETHANY DISEASE Negative 5 2:42 PM EDT [facility] CYSTIC FIBROSIS Negative 5 2:42 PM EDT [facility] DUCHENNE/BAZAN MUSCULAR DYSTROPHY Negative 11/23/2024 2:42 PM EDT [facility] FAMILIAL DYSAUTONOMIA Negative 11/23/2024 2:42 PM EDT [facility] FRAGILE X SYNDROME Negative 11/23/2024 2:42 PM EDT [facility] Comment: NEGATIVE Fragile X Syndrome (X-linked) results 34 and 30 CGG repeats were detected in the FMR1 genes. GALACTOSEMIA Negative 11/23/2024 2:42 PM EDT [facility] GAUCHER DISEASE Negative 2:42 PM EDT [facility] MEDIUM CHAIN ACYL-COA DEHYDROGENASE DEFICIENCY Negative 11/23/2024 2:42 PM EDT [facility] POLYCYSTIC KIDNEY DISEASE AUTOSOMAL RECESSIVE Negative 11/23/2024 2:42 PM EDT [facility] ACLYJ-IRFRA-WLBSM SYNDROME Negative 11/23/2024 2:42 PM EDT [facility] SPINAL MUSCULAR ATROPHY Negative 11/23/2024 2:42 PM EDT [facility] Comment: NEGATIVE Spinal Muscular Atrophy (SMA) Results SMN1: Two copies; g.[id number]>G: absent; the absence of the g.[id number]>G variant decreases the chance to be a silent (2+0) carrier. CLARE-SACHS DISEASE Negative 025 2:42 PM EDT [facility] PANEL NOTES See Notes 11/23/2024 2:42 PM EDT [facility] REPORT NOTE See Notes 11/23/2024 2:42 PM EDT [facility] FOOTNOTES See Notes 11/23/2024 2:42 PM EDT [facility] Comment: Please see the attached PDF for information regarding Conditions, Methodology, Disclaimers, and further information. Test performed by [employer]. : [address] [facility], [address], [address], [place] [address] CLIA ID #[id number] CLIA Steam Table Attendant: Fozia Thomas, Ph.D., [facility] Blood Venous blood specimen / Unknown Venipuncture / Unknown 11/16/2024 11:21 AM EDT 11/16/2024 11:22 AM EDT [place] A Messer MD [facility] ORDERABLES Final R esult [facility] [address] [place] [address], * PANORAMI TEST (11/16/2024 11:21 AM EDT) REPORT SUMMARY LOW RISK 11/21/2024 11:54 AM EDT [facility] Comment:LOW RISK REPORT NOTE See Notes 11/21/2024 11:54 AM EDT [facility] SEX OF FETUS Female 2024 11:54 AM EDT [facility] FRACTION2 7.1% 11:54 AM EDT [facility] TRISOMY 21 RESULT TEXT Low Risk 11/21/2024 11:54 AM EDT [facility] TRISOMY 21 AGE-BASED RISK TEXT 05/20,068 (0.09%) 11/21/2024 11:54 AM EDT [facility] TRISOMY 21 RISK SCORE TEXT <1/10,000 (<0.01%) 11/21/2024 11:54 AM EDT [facility] TRISOMY 18 RESULT TEXT Low Risk 11/21/2024 11:54 AM EDT [facility] TRISOMY 18 AGE-BASED RISK TEXT 2,484 (0.04%) 11/21/2024 11:54 AM EDT [facility] TRISOMY 18 RISK SCORE TEXT <1/10,000 (<0.01%) 11/21/2024 11:54 AM EDT [facility] TRISOMY 13 RESULT TEXT Low Risk 11/21/2024 11:54 AM EDT [facility] TRISOMY 13 AGE-BASED RISK TEXT 05/26,826 (0.01%) 11/21/2024 11:54 AM EDT [facility] TRISOMY 13 RISK SCORE TEXT <1/10,000 (<0.01%) 11/21/2024 11:54 AM EDT [facility] MONOSOMY X RESULT TEXT Low Risk 11/21/2024 11:54 AM EDT [facility] MONOSOMY X AGE-BASED RISK TEXT 1255 (0.39%) 11/21/2024 11:54 AM EDT [facility] MONOSOMY X RISK SCORE TEXT <1/10,000 (<0.01%) 11/21/2024 11:54 AM EDT [facility] TRIPLOIDY RESULT TEXT Low Risk 09/2024 11:54 AM EDT [facility] 22Q11.2 DELETION SYNDROME RESULT TEXT Low Risk 11/21/2024 11:54 AM EDT [facility] 22Q11.2 DELETION SYNDROME POPULATION-BASED RISK TEXT 11/21/2024 11:54 AM EDT [facility] 22Q11.2 DELETION SYNDROME RISK SCORE TEXT 11/21/2024 11:54 AM EDT [facility] FOOTNOTES See Notes 11/21/2024 11:54 AM EDT [facility] Comment: Testing Methodology DNA isolated from maternal blood, which contains placental DNA, is amplified at specific loci using a targeted PCR assay and is sequenced using a high- throughput sequencer. fraction is determined using a proprietary algorithm incorporating data from single nucleotide polymorphism-based (SNP-based) next-generation sequencing [Coleman Cadena et al. Obstet Gynecol. 2014 Dec;124(2 Pt 1):210-8]. If there is sufficient fraction, sequencing data is analyzed using a proprietary SNP- based algorithm to determine the copy number for chromosomes 13, 18, 21, X and Y. If ordered, specific microdeletions will be evaluated using similar methodology [Torrey CALERO et al. Am J Obstet Gynecol. 2015 Jul;212(3):332.e1-9]. If the fraction is insufficient, an additional algorithm to determine whether there is an increased risk for triploidy, trisomy 18, and trisomy 13 may be utilized, known as fraction based risk assessment (FFBR) [Timoteo et al. Ultrasound Obstet Gynecol 2019; 53:73-79]. If ordered on a vanishing twin , a proprietary analysis will be performed to differentiate between the viable/living fetus and the vanished fetus to allow for risk assessment of copy number of chromosomes 13,18, 21, X, Y, and specific microdeletions in the viable/living twin using the above described SNP- based algorithm. If ordered, and patient is RHD negative by genotype, RHD status will be evaluated using a proprietary algorithm if fraction is sufficient [Hermelinda Perez et al. Obstet Gynecol 2023;145:1?7]. However, some samples will not produce a result due to failure to meet the necessary quality thresholds. This test has been validated on women with a myrick, twin, vanishing twin, or egg donor of at least nine weeks gestation. A result will not be available for higher order multiples and multiple gestation pregnancies with an egg donor or surrogate, or bone marrow transplant recipients. Complete test panel is not available for twin gestations and pregnancies achieved with an egg donor or surrogate. For twin pregnancies with a fraction value below the threshold for analysis, a sum of the fractions for both twins will be reported. As this assay is a screening test and not diagnostic, false positives and false negatives can occur. High risk test results need diagnostic confirmation by alternative testing methods. Low risk results do not fully exclude the diagnosis of any of the syndromes nor do they exclude the possibility of other chromosomal abnormalities or defects, which are not a part of this test. Potential sources of inaccurate results include, but are not limited to, mosaicism, low fraction, limitations of current diagnostic techniques, or misidentification of samples. This test will not identify all deletions associated with each microdeletion syndrome. This test has been validated for deletions ?0.5 Mb within the 22q11.2 A-D region. This test has been validated on full region deletions only for 1p36 deletion syndrome, Cri-du-chat syndrome, Prader Willi syndrome and Angelman syndrome and may be unable to detect smaller deletions. Microdeletion risk score may be dependent upon fraction, as deletions on the maternally inherited copy are difficult to identify at lower fractions. Test results should always be interpreted by a clinician in the context of clinical and familial data with the availability of genetic counseling when appropriate. Disclaimers The extraction, library preparation, and sequencing of this test were performed by [employer]., [address] [place] [address] [address], [place] [address] (CLIA ID [id number]). The data analysis and reporting of this test were performed by [employer] [address] [place] [address], [place] [address] (CLIA ID [id number]). The performance characteristics of this test were developed by [employer].(CLIA ID [id number]). This test has not been cleared or approved by the U.S. Food and Drug Administration (FDA). These laboratories are regulated under CLIA as qualified to perform high-complexity testing. 2024 [employer]. All Rights Reserved. Please refer to the attached PDF report Reviewed By: Mandeep Lebron M.D., Ph.D., [facility], Senior Rn Neurosurgical [facility] Steam Table Attendant: Fozia Thomas, Ph.D., [facility] IF THE ORDERING PROVIDER HAS QUESTIONS OR WISHES TO DISCUSS THE RESULTS, PLEASE CONTACT US AT [phone] #[phone]. Ask for the [facility] utility bill collection clerk. Blood Venous blood specimen / Unknown Venipuncture / Unknown 11/16/2024 11:21 AM EDT 11/16/2024 11:22 AM EDT us Uche VERAERA BLOOD ORDERABLES Final R esult [facility] [address] [place] [address], US * OB US Nuchal Translucency (11/16/2024 10:51 AM EDT) Anatomical Region Laterality Modality Ultrasound 11/16/2024 10:3 2 AM EDT Impressions 11/16/2024 11:07 AM EDT The OB Ultrasound you requested has been resulted. Please navigate to the Imaging tab in [employer] for review. This message has been generated by the interface. Narrative Procedure Note Elisa Armas MD - 11/16/2024 IMPRESSION: The OB Ultrasound you requested has been resulted. Please navigate to theImaging tab in [employer] for review. This message has been generated by theinterface. us Uche Messer MD IMG OB US PROCEDURES Final Resu lt * Chlamydia trachomatis DNA by PCR (10/19/2024 3:04 PM EDT) Chlamydia trachomatis DNA PCR Result Not Detected Not Detected 10/20/2024 10:[address] [facility] Urine Urine specimen / Unknown Non-blood Collection / Unknown 10/19/2024 3:04 PM EDT 10/19/2024 5:[address] [facility] - 10/20/2024 10:43 AM EDT This test is performed by the [employer] m2000 instrument for Real Time PCR C. trachomatis and N. gonorrhea. This test is FDA approved for use with endocervical, vaginal, and urine specimens. This test is used for clinical purposes. It should not be regarded as invesigational or for research. The [facility] is certified under the Clinical Laboratory Improvement Amendments of 1988 (CLIA-88) as qualified to perform high complexity clinical laboratory testing. Result João Messer MD LAB MICROBIOLOGY - GENERAL [facility] Final Result Performing Organization Address [facility]/[place] [address] * HIV 1 & 2 Antibody/Antigen Screen (10/19/2024 3:04 PM EDT) HIV 1 & 2 Antibody/Antigen Screen Non Reactive Non Reactive 10/19/2024 6:[address] [facility] Comment:Screening for HIV 1 & 2 antibodies, and P24 antigen is NONREACTIVE. No confirmatory testing is required. Blood Venous blood specimen / Unknown Venipuncture / Unknown 10/19/2024 3:04 PM EDT 10/19/2024 5:56 PM EDT Result João Messer MD LAB BLOOD [place] [address] * Hepatitis C Antibody w/Reflex to HCV Quant PCR (10/19/2024 3:04 PM EDT) Hepatitis C Antibody Negative Negative 10/19/2024 6:30 PM EDT [facility] Blood Venous blood specimen / Unknown Venipuncture / Unknown 10/19/2024 3:04 PM EDT 10/19/2024 5:56 PM EDT us Uche Messer MD LAB BLOOD ORDERABLES Final Resu lt [facility] [address] [place] [address] from Last 3 Months or Most Recently Relevant to Health Maintenance Additional Health Concerns Active Problems Noted Date Diagnosed Date CPM S24 PP LABOR (OBSTETRICS) 12/17/2024 Insurance MEDICAID Care Teams Assistant Foreman Relationship Specialty Start Date End Date Ksenia Smith MD [address] [place] [address] PCP - General 09/30/20
[2025-02-13 21:41] VITALS: BP 136/83; PULSE 105; RESP 16; TEMP 36.8; O2SAT 100; BMI 27.4
[2025-02-13 21:48] VITALS: PULSE 105
[2025-02-13 22:13] LABS: Alanine Aminotransferase 19 U/L (12-78); Albumin Level 3.6 g/dl (3.5-5.0); Albumin/Globulin Ratio 1.4 (1.1-1.8); Alkaline Phosphatase 69 U/L (38-126); Anion Gap 10.1 mEq/L (5-15); Aspartate Amino Transferase 19 U/L (14-36); Bilirubin,Total 0.4 mg/dl (0.2-1.3); Blood Urea Nitrogen 4 mg/dl (7-17); Calcium 8.9 mg/dl (8.4-10.2); Carbon Dioxide 26 mmol/L (22.0-30.0); Chloride 103 mmol/L (98-107); Creatinine Clearance Estimated 179 mL/min (50-200); Creatinine,Serum 0.60 mg/dl (0.52-1.04); Estimated Glomerular Filt Rate 125 ml/min (>60); GFR (African American) 151 ML/MIN (>60); Globulin 2.6 g/dL (1.3-3.2); Glucose 89 mg/dl (74-100); Lipase 46 U/L (23-300); Potassium 3.1 mmoL/L (3.5-5.1); Sodium 136 mmol/L (136-145); Total Protein,Serum 6.2 g/dl (6.3-8.2)
[2025-02-13 22:30] LABS: Troponin I < 0.01 ng/ml (0.00-0.034)
[2025-02-13 22:31] VITALS: BP 102/78; PULSE 90; RESP 16; O2SAT 99
--- NOTE | 2025-02-13 22:32 | HMH.ITSTN ---
Radiology went to get pt and to have chest CXR, after reading form to sign pt declined x ray. Nurse to notify .
--- NOTE | 2025-02-13 22:35 | PC.NURSE ---
computed tomography technician came to nurses station and reported that the pt refused the xray. I went to the pt with fluids and she stated Can i refuse that . Pt stated I just really want to go home . notified.
[2025-02-13 23:00] VITALS: BP 117/76; PULSE 93; RESP 24; O2SAT 99
[2025-02-13 23:10] LABS: Hepatitis C Ab Qual. W/ RFX NEGATIVE (Negative)
[2025-02-13 23:30] VITALS: BP 114/73; PULSE 53; RESP 16; TEMP 37; O2SAT 99
== END 2025-02-13 23:31 | disposition left against medical advice (07) ==
PROVIDERS: Emergency Provider Student in an Organized Health Care Education/Training Program
DX: O26.892 Other specified pregnancy related conditions, second trimester (principal); R07.9 Chest pain, unspecified; E87.6 Hypokalemia; Z3A.25 25 weeks gestation of pregnancy
CPT/HCPCS: 80053; 83690; 84484; 86803; 87389; 93005; 99283; 99285